=== PATIENT | female | born 1985 | race Caucasian/White ===

== ENCOUNTER 2018-07-07 18:14 | Emergency (ER) | payer OTHER ==
[~2018-07-07] VITALS: Ht 167.6 cm; Wt 72.6 kg
[2018-07-07] MEDS ORDERED: KEFLEX500 M1 PO (19:45)
[2018-07-07] MEDS ORDERED: MOBIC15 MG PO (19:45)
[2018-07-07 19:55] VITALS: BP 119/46
== END 2018-07-07 19:53 | disposition home or self-care (01) ==
LOC: ER 18:14
DX: L03.032 Cellulitis of left toe (principal); F17.210 Nicotine dependence, cigarettes, uncomplicated; J45.909 Unspecified asthma, uncomplicated; M41.9 Scoliosis, unspecified; Z91.041 Radiographic dye allergy status